=== PATIENT | male | born 1990 | race Caucasian/White ===

== ENCOUNTER 2021-03-11 13:35 | Emergency (ER) | payer BC | END 2021-03-11 16:16 | disposition home or self-care (01) | LOC: ER1 13:35 | DX: J06.9 Acute upper respiratory infection, unspecified (principal); Z20.822 Contact with and (suspected) exposure to COVID-19; E11.9 Type 2 diabetes mellitus without complications; Z88.0 Allergy status to penicillin | CPT/HCPCS: 99284; U0002 ==